=== PATIENT | male | born 1985 | race Caucasian/White ===

== ENCOUNTER 2023-10-30 10:21 | Emergency (ER) | payer OTHER ==
[~2023-10-30] VITALS: Ht 188 cm; Wt 91.8 kg
[2023-10-30 10:35] VITALS: BP 142/82; TEMP 97.8
[2023-10-30 11:33] VITALS: PULSE 53
[2023-10-30 12:20] LABS: COLLECTION METHOD CLEAN CATCH
[2023-10-30 12:36] LABS: PH 5.5 (5.0-8.5); URINE APPEARANCE CLEAR (CLEAR/HAZY); URINE BLOOD NEGATIVE (NEGATIVE); URINE GLUCOSE NEGATIVE (NEGATIVE); URINE KETONE NEGATIVE (NEGATIVE); URINE NITRATE NEGATIVE (NEGATIVE); URINE PROTEIN(semi-quant) NEGATIVE (BEGATIVE); URINE UROBILINOGEN 0.2 E.U/dL (0.2-1.0)
[2023-10-30 12:37] LABS: URINE COLOR YELLOW (YELLOW)
== END 2023-10-30 11:46 | disposition home or self-care (01) ==
LOC: COL.ER 10:21
PROVIDERS: Personal Emergency Response Attendant
DX: N39.43 Post-void dribbling (principal)